=== PATIENT | female | born 1980 | race African-American/Black ===

== ENCOUNTER 2016-11-29 17:51 | Emergency (ER) | payer SELFPAY ==
[~2016-11-29] VITALS: Ht 172.7 cm; Wt 63.5 kg
[2016-11-29 18:19] VITALS: BP 118/68
[2016-11-29] MEDS ORDERED: Methocarbamol 750mg tab ORAL ONE (18:45)
[2016-11-29 20:00] VITALS: BP 115/63
[2016-11-29] MEDS ORDERED: ROBAXIN-750750 MG PO (20:05)
[2016-11-29] MEDS ORDERED: IBUPROFEN600 MG ORAL (20:05)
[2016-11-29] MEDS ORDERED: TRAMADOL HCL50 MG ORAL (20:05)
[2016-11-29] MEDS ORDERED: Bacitracin Oint UD TOPIC ONE (20:15)
[2016-11-29 20:17] VITALS: BP 115/63
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
--- NOTE | 2016-12-02 15:56 | Cardiology Report ---
APPROVED REPORT EKG Measurement Heart [id number] Sinus bradycardia with sinus arrhythmia Otherwise normal ECG
== END 2016-11-29 20:17 | disposition home or self-care (01) ==
LOC: EDBD 17:51 → EMR 18:30
DX: M62.838 Other muscle spasm (principal); S10.93XA Contusion of unspecified part of neck, initial encounter; V43.62XA Car passenger injured in collision with other type car in traffic accident, initial encounter; Y92.410 Unspecified street and highway as the place of occurrence of the external cause; Q67.6 Pectus excavatum
CPT/HCPCS: 71020; 72040; 93005; 99284